=== PATIENT | male | born 1980 ===

== ENCOUNTER 2020-01-25 17:01 | Emergency (ER) | payer OTHER ==
[~2020-01-25] VITALS: Ht 172 cm; Wt 65.0 kg
[2020-01-25] MEDS ORDERED: NS IV 1000 ML 1,000 ML IV SCH (17:19)
[2020-01-25] MEDS ORDERED: LABETALOL HCL 20 MG/4 ML VIAL ONE (17:22)
[2020-01-25] MEDS ORDERED: meTOprolol 5 MG/5 ML (LOPRESSOR) VIAL IV ONE (17:30)
[2020-01-25 17:31] LABS: BASOPHILS % (AUTO) 0 % (0-10); EOSINOPHILS # (AUTO) 0.6 10^3/uL (0.0-0.3); EOSINOPHILS % (AUTO) 5 % (0-10); HEMATOCRIT 44 % (40-54); HEMOGLOBIN 15.3 G/DL (13.3-17.7); LYMPHOCYTES # (AUTO) 3.3 X 10^3 (1.0-4.0); LYMPHOCYTES % (AUTO) 28 % (12-44); MEAN CORPUSCULAR HEMOGLOBIN 26 PG (25-34); MEAN CORPUSCULAR HGB CONC 35 G/DL (32-36); MEAN CORPUSCULAR VOLUME 76 FL (80-99); MONOCYTES # (AUTO) 1.2 X 10^3 (0.0-1.0); MONOCYTES % (AUTO) 10 % (0-12); NEUTROPHILS # (AUTO) 6.8 X 10^3 (1.8-7.8); NEUTROPHILS % (AUTO) 57 % (42-75); PLATELET COUNT 313 10^3/uL (130-400); RED CELL DISTRIBUTION WIDTH 14.2 % (10.0-14.5)
[2020-01-25 17:44] LABS: ALBUMIN 4.6 GM/DL (3.2-4.5); INR 0.9 (0.8-1.4); PROTHROMBIN TIME PATIENT 12.7 SEC (12.2-14.7)
[2020-01-25 17:45] LABS: CHLORIDE 102 MMOL/L (98-107); POTASSIUM 3.3 MMOL/L (3.6-5.0); SODIUM 139 MMOL/L (135-145)
[2020-01-25] MEDS ORDERED: ASPIRIN 81 MG CHEW (CHILDREN'S ASA) PO ONE (17:45)
[2020-01-25 17:46] LABS: CALCIUM 9.7 MG/DL (8.5-10.1)
[2020-01-25 17:47] LABS: GLUCOSE 117 MG/DL (70-105); TOTAL PROTEIN 7.9 GM/DL (6.4-8.2)
[2020-01-25 17:48] LABS: CARBON DIOXIDE 21 MMOL/L (21-32)
[2020-01-25 17:49] LABS: BILIRUBIN,TOTAL 0.3 MG/DL (0.1-1.0)
--- NOTE | 2020-01-25 17:49 | Diagnostic Imaging Report ---
INDICATION: Palpitations. EXAMINATION: Upright chest. FINDINGS: Normal heart size and vascularity. The lungs are clear. There is no effusion or pneumothorax. There is no bony abnormality. IMPRESSION: Normal chest. Dictated by: Dictated on workstation # [id number]
--- NOTE | 2020-01-25 17:49 | NUR ---
THE PT IS RESTING MUCH BETTER WITHOUT COMPLAINTS.
[2020-01-25 17:51] LABS: ALKALINE PHOSPHATASE 107 U/L (40-136); CREATININE SERUM 0.88 MG/DL (0.60-1.30); GFR ESTIMATED > 60
[2020-01-25 17:52] LABS: BUN/CREATININE RATIO 9
[2020-01-25 17:54] LABS: ALANINE AMINOTRANSFERASE 32 U/L (0-55); MAGNESIUM 1.9 MG/DL (1.6-2.4)
[2020-01-25 18:00] VITALS: BP 142/99
--- NOTE | 2020-01-25 18:02 | ED Cardiac General ---
History of Present Illness General Chief Complaint: Cardiac/General Problems Stated Complaint: ELEV HR History of Present Illness Date Seen by Provider: Jan 25, 2020 Time Seen by Provider: 17:00 Initial Comments 40-year-old male presents for palpitations that started one hour ago, while watching TV. He is originally from [facility] reports that in 2019 that si milar symptoms and required evaluation in the emergency department February 2019 in [place], [place] and May 2019 and [facility]. Neither work up identified a cause (EKG, labs, he did not have Echo or Heart Cath). He denies Rx or OTC medications, supplements or illicit drug use. Denies anxiety or stress. 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 His home is in [place], [place]. Denies chest pain, n/v, headache, diaphoresis or other complaints. He drinks 3 cups of espresso, daily. He was in [place], [place] 2 days ago, no known COVID-19 risks. He is hypoventilating, on presentation. Timing/Duration: 1 hour Severity: mild NTG SL CONDENSER TUBE TENDER: No ASA po CONDENSER TUBE TENDER: No Associated Systoms: Denies Symptoms; No Chest Pain, No Cough, No Fever/Chills, No Loss of Appetite, No Malaise, No Nausea/Vomiting, No Shortness of Air, No Syncope, No Weakness Allergies and Home Medications Allergies Coded Allergies: No Known Drug Allergies (Unverified , 01/25/20) Home Medications Metoprolol Succinate 25 Mg Tab.er.24h, 25 MG PO DAILY Prescribed by: GUSTABO WINKLER on 01/25/20 2237 Patient Home Medication List Home Medication List Reviewed: Yes Review of Systems Review of Systems Constitutional: no symptoms reported, see HPI Respiratory: No Symptoms Reported, See HPI, Cough Cardiovascular: See HPI, Palpitations All Other Systems Reviewed Negative Unless Noted: Yes Past Fajudyo-Rahrbr-Mubnpw Hx Past Med/Social Hx: Reviewed Nursing Past Med/Soc Hx Patient Social History Recent Foreign Travel: No Contact w/Someone Who Travel: No Physical Exam Vital Signs Vital Signs - First Documented 01/25/20 17:53 Temp 36.8 Pulse 120 Resp 28 B/P (MAP) 170/100 (123) Pulse Ox 99 Capillary Refill : Height, Weight, BMI Height: '" Weight: lbs. oz. kg; BMI Method: General Appearance: Anxious, Mild Distress HEENT: PERRL/EOMI, TMs Normal, Normal ENT Inspection, Pharynx Normal Neck: Full Range of Motion, Normal Inspection, Non Tender, Supple Respiratory: Chest Non Tender, Lungs Clear, Normal Breath Sounds Cardiovascular: No Edema, No JVD, No Murmur, Normal Peripheral Pulses, Tachycardia Gastrointestinal: Normal Bowel Sounds, Non Tender, Soft Extremity: Normal Capillary Refill, Normal Inspection, Normal Range of Motion, Non Tender, No Calf Tenderness, No Pedal Edema Neurologic/Psychiatric: Alert, Oriented x3, No Motor/Sensory Deficits, Normal Mood/Affect Skin: Normal Color, Warm/Dry; No Diaphoresis Lymphatic: No Adenopathy Progress/Results/Core Measures Results/Orders Lab Results Laboratory Tests Test 01/25/20 17:21 01/25/20 18:00 Range/Units White Blood Count 12.0 H 4.3-11.0 10^3/uL Red Blood Count 5.83 4.35-5.85 10^6/uL Hemoglobin 15.3 13.3-17.7 G/DL Hematocrit 44 40-54 % Mean Corpuscular Volume 76 L 80-99 FL Mean Corpuscular Hemoglobin 26 25-34 PG Mean Corpuscular Hemoglobin Concent 35 32-36 G/DL Red Cell Distribution Width 14.2 10.0-14.5 % Platelet Count 313 130-400 10^3/uL Mean Platelet Volume 11.0 H 7.4-10.4 FL Neutrophils (%) (Auto) 57 42-75 % Lymphocytes (%) (Auto) 28 12-44 % Monocytes (%) (Auto) 10 0-12 % Eosinophils (%) (Auto) 5 0-10 % Basophils (%) (Auto) 0 0-10 % Neutrophils # (Auto) 6.8 1.8-7.8 X 10^3 Lymphocytes # (Auto) 3.3 1.0-4.0 X 10^3 Monocytes # (Auto) 1.2 H 0.0-1.0 X 10^3 Eosinophils # (Auto) 0.6 H 0.0-0.3 10^3/uL Basophils # (Auto) 0.0 0.0-0.1 10^3/uL Prothrombin Time 12.7 12.2-14.7 SEC INR Comment 0.9 0.8-1.4 Activated Partial Thromboplast Time 23 L 24-35 SEC Sodium Level 139 135-145 MMOL/L Potassium Level 3.3 L 3.6-5.0 MMOL/L Chloride Level 102 98-107 MMOL/L Carbon Dioxide Level 21 21-32 MMOL/L Anion Gap 16 H 5-14 MMOL/L Blood Urea Nitrogen 8 7-18 MG/DL Creatinine 0.88 0.60-1.30 MG/DL Estimat Glomerular Filtration Rate > 60 BUN/Creatinine Ratio 9 Glucose Level 117 H 70-105 MG/DL Calcium Level 9.7 8.5-10.1 MG/DL Corrected Calcium 8.5-10.1 MG/DL Magnesium Level 1.9 1.6-2.4 MG/DL Total Bilirubin 0.3 0.1-1.0 MG/DL Aspartate Amino Transf (AST/SGOT) 22 5-34 U/L Alanine Aminotransferase (ALT/SGPT) 32 0-55 U/L Alkaline Phosphatase 107 40-136 U/L Myoglobin 13.5 10.0-92.0 NG/ML Troponin I < 0.028 <0.028 NG/ML Total Protein 7.9 6.4-8.2 GM/DL Albumin 4.6 H 3.2-4.5 GM/DL Urine Color YELLOW Urine Clarity CLEAR Urine pH 6.5 5-9 Urine Specific Froid 1.010 L 1.016-1.022 Urine Protein NEGATIVE NEGATIVE Urine Glucose (UA) NEGATIVE NEGATIVE Urine Ketones NEGATIVE NEGATIVE Urine Nitrite NEGATIVE NEGATIVE Urine Bilirubin NEGATIVE NEGATIVE Urine Urobilinogen 0.2 < = 1.0 MG/DL Urine Leukocyte Esterase NEGATIVE NEGATIVE Urine RBC (Auto) TRACE-I NEGATIVE Urine RBC NONE /HPF Urine WBC RARE /HPF Urine Crystals NONE /LPF Urine Bacteria NEGATIVE /HPF Urine Casts NONE /LPF Urine Mucus NEGATIVE /LPF Urine Culture Indicated NO Urine Opiates Screen NEGATIVE NEGATIVE Urine Oxycodone Screen NEGATIVE NEGATIVE Urine Methadone Screen NEGATIVE NEGATIVE Urine Propoxyphene Screen NEGATIVE NEGATIVE Urine Barbiturates Screen NEGATIVE NEGATIVE Ur Tricyclic Antidepressants Screen NEGATIVE NEGATIVE Urine Phencyclidine Screen NEGATIVE NEGATIVE Urine Amphetamines Screen NEGATIVE NEGATIVE Urine Methamphetamines Screen NEGATIVE NEGATIVE Urine Benzodiazepines Screen NEGATIVE NEGATIVE Urine Cocaine Screen NEGATIVE NEGATIVE Urine Cannabinoids Screen NEGATIVE NEGATIVE My Orders Orders - CATHI,GUSTABO CLASSROOM AIDE Ekg Tracing (01/25/20 17:03) Cbc With Automated Diff (01/25/20 17:09) Magnesium (01/25/20 17:09) Chest 1 View, Ap/Pa Only (01/25/20 17:09) Comprehensive Metabolic Panel (01/25/20 17:09) Myoglobin Serum (01/25/20 17:09) Protime With Inr (01/25/20 17:09) Partial Thromboplastin Time (01/25/20 17:09) Monitor-Rhythm Ecg Trace Only (01/25/20 17:09) Ed Iv/Invasive Line Start (01/25/20 17:09) Troponin I (01/25/20 17:09) Ed Iv/Invasive Line Start (01/25/20 17:19) Ns Iv 1000 Ml (Sodium Chloride 0.9%) (01/25/20 17:19) Drug Screen Stat (Urine) (01/25/20 17:19) Ua Culture If Indicated (01/25/20 17:19) Metoprolol Tartrate Injection (Lopressor (01/25/20 17:30) Labetalol Injection (Normodyne Injection (01/25/20 17:22) Aspirin Chewable Tablet (Baby Aspirin Ch (01/25/20 17:45) Potassium Chloride (Tablet) (Klor Con Ta (01/25/20 18:28) Metoprolol Succinate (Xl) Tab (Toprol Xl (01/25/20 18:30) Medications Given in ED Current Medications Medications Dose Ordered Sig/Alexandro Route Start Time Stop Time Status Last Admin Dose Admin Aspirin 324 mg ONCE ONCE PO 01/25/20 17:45 01/25/20 17:46 DC 01/25/20 17:47 324 MG Labetalol HCl 20 mg STK-MED ONCE .ROUTE 01/25/20 17:22 01/25/20 17:24 DC 01/25/20 17:46 5 MG Vital Signs/I&O 01/25/20 01/25/20 01/25/20 17:53 18:00 18:44 Temp 36.8 37.7 Pulse 120 99 97 Resp 28 16 16 B/P (MAP) 170/100 (123) 142/99 (113) 124/96 Pulse Ox 99 99 99 Progress Progress Note : Time: 17:00 Progress Note Patient seen and evaluated, initial heart rate 120-130, B/P 200/110, sinus rhythm. Patient hypoventilating had him take slow, deep breaths. HR improved to 100-115. Will obtain labs, EKG, Chest X-ray, and Aspirin 324 mg PO. 1712 HR to 170, new EKG, continued Sinus Rhythm. Dr. Beyer present, valsalva maneuver. HR down to 130-140. Metoprolol 5 mg IV, to repeat n 5 min, if continued Tachy. B/P 170/90. 1725 after Metoprolol HR 90s, patient reports improvement in palpitations. B/P 150/[address] Conway, with improvement after Metoprolol, ok to D/C to home on Toprol 25 mg. To see Cardiology this week. 1830 patient has remained stable with heart rate 80-90, no palpitations or anxiety. Discharge instructions and return precautions reviewed. Initial ECG Impression Date: Jan 25, 2020 Initial ECG Impression Time: 17:08 Initial ECG Rate: 142 Initial ECG Rhythm: S.Tach Initial ECG Intervals: Normal Initial ECG Intervals ND 117, QRSD 97, QTC 296, QTc 455. Republic P 85, QRS 64, T -33. Initial ECG Impression: Normal Initial ECG Comparisson: No Previous ECG Available EKG : EKG Time: 17:15 Rate: 170 Rhythm: S.Tach Intervals: Normal Intervals ND 102, QRSD 83, QT 356, QTC 549. Republic P 99; QRS 55, T 61 ECG Comparisson: Changed ECG Impression: Normal Diagnostic Imaging Diagonstic Imaging: Xray Plain Films/CT/US/NM/MRI: chest Comments NAME: [facility] REC#: [id number] PT STATUS: REG ER : 1980 PHYSICIAN: GUSTABO WINKLER CLASSROOM AIDE ADMIT DATE: 01/25/20/ER Signed Date of Exam:01/25/20 CHEST 1 VIEW, AP/PA ONLY INDICATION: Palpitations. EXAMINATION: Upright chest. FINDINGS: Normal heart size and vascularity. The lungs are clear. There is no effusion or pneumothorax. There is no bony abnormality. IMPRESSION: Normal chest. Dictated by: Dictated on workstation # [id number] Dict: 01/25/20 1746 Trans: 01/25/20 175 [facility] [id number] Interpreted by: STEVEN GREENE MD Electronically signed by: STEVEN GREENE MD 01/25/20 4775 Reviewed: Reviewed by Me Departure Impression Primary Impression: Palpitations Additional Impression: Sinus tachycardia Disposition: 01 HOME, SELF-CARE Condition: Improved Departure-Patient Inst. Decision time for Depature: 18:30 Referrals: JESENIA CONWAY MD NO,LOCAL PHYSICIAN (PCP) Primary Care Physician Patient Instructions: Tachycardia (DC), Palpitations (DC) Add. Discharge Instructions: Take Toprol as prescribed. Increase water intake, 16 oz every 2 hours, while awake. Call for Appt with Dr. Conway for Sun or . Return to the Emergency Dept for palpitations, elevated heart rate, chest pain, shortness of breath or new urgent conditions. All discharge instructions reviewed with patient and/or family. Voiced understanding. Scripts Metoprolol Succinate (Toprol Xl) 25 Mg Tab.er.24h 25 MG PO DAILY, #30 TAB 1 Refill Prov: GUSTABO WINKLER 01/25/20 Copy Copies To 1: JESENAI CONWAY MD, AMY ARNP Jan 25, 2020 18:02
[2020-01-25 18:23] LABS: BILIRUBIN,URINE NEGATIVE (NEGATIVE); CLARITY,URINE CLEAR; COLOR,URINE YELLOW; GLUCOSE, URINE (UA) NEGATIVE (NEGATIVE); KETONES,URINE NEGATIVE (NEGATIVE); LEUKOCYTE ESTERASE ,URINE NEGATIVE (NEGATIVE); NITRITE,URINE NEGATIVE (NEGATIVE); PH,URINE 6.5 (5-9); PROTEIN,URINE NEGATIVE (NEGATIVE)
[2020-01-25 18:24] LABS: AMPHETAMINE SCREEN, URINE NEGATIVE (NEGATIVE); BARBITURATE SCREEN URINE NEGATIVE (NEGATIVE); BENZODIAZEPINES SCREEN URINE NEGATIVE (NEGATIVE); CANNABINOID SCREEN, URINE NEGATIVE (NEGATIVE); COCAINE SCREEN URINE NEGATIVE (NEGATIVE); METHADONE STAT NEGATIVE (NEGATIVE); METHAMPHETAMINE SCREEN URINE S NEGATIVE (NEGATIVE); OPIATE SCREEN URINE NEGATIVE (NEGATIVE); OXYCODONE STAT NEGATIVE (NEGATIVE); PROPOXYPHENE STAT NEGATIVE (NEGATIVE); TRICYCLIC ANTIDEPRESSANTS SCRE NEGATIVE (NEGATIVE)
[2020-01-25] MEDS ORDERED: KCL 10 MEQ TAB (MICRO K) PO STA (18:28)
[2020-01-25 18:30] LABS: BACTERIA,URINE NEGATIVE /HPF; WBC,URINE RARE /HPF
[2020-01-25] MEDS ORDERED: meTOproloL SUCCINATE 50 MG (TOPROL XL) TAB PO SCH (18:30)
[2020-01-25] MEDS ORDERED: METO-351 PO (18:38)
[2020-01-25 18:44] VITALS: BP 124/96
--- OUTSIDE RECORDS SUMMARY | 2020-01-25 18:48 | XMS REPORT | Continuity of Care Document ---
Author Organization Unknown Address Unknown Phone Unavailable Allergies There is no data. Medications There is no data. Problems There is no data. Procedures There is no data. Results There is no data. Encounters ACCT No. Visit Date/Time Discharge Status Pt. Type Provider Facility Loc./Unit Complaint [id number] 11/07/2019 09:10:00 11/07/2019 23:59: 59 CLS Outpatient [facility]
== END 2020-01-25 19:03 | disposition home or self-care (01) ==
LOC: ER 17:02
DX: R00.0 Tachycardia, unspecified (principal)
CPT/HCPCS: 36415; 71045; 80053; 80306; 81000; 83735; 83874; 84484; 85025; 85610; 85730; 93041

== ENCOUNTER → 2020-02-23 | Outpatient (CLI) | payer OTHER ==
[~2020-02-23] MED LIST: METO-351 PO
[2020-02-23 11:10] VITALS: BP 128/71
--- NOTE | 2020-02-23 11:10 | Cardiology Stress Test Report ---
Stress Test Report Date of Procedure/Referring: Date of Procedure: Feb 23, 2020 PCP Jesenia Conway MD Admitting Physician No,Local Physician Indications: Palpitation Baseline Heart Rate: 83 Baseline Blood Pressure: Blood Pressure Systolic: 128 Blood Pressure Diastolic: 71 Baseline EKG: Baseline EKG: normal sinus rhythm Summary/Conclusion: Summary: In summary, the patient started exercising with a baseline heart rate, blood pressure and EKG mentioned above Patient was able to exercise for a total of 7 minutes on Werner protocol, METs 8.5 Maximum heart rate 156 Maximum blood pressure 196/102 Stress EKG, Minimal nondiagnostic changes Recovery EKG , Return to baseline Conclusion: 1. Good exercise tolerance for a total of 7 minutes on Werner protocol, 8.5 METs, achieving 87 percent of maximum expected heart rate 2. Minimal nondiagnostic EKG changes with exercise returned to baseline during recovery 3. No arrhythmia was noted JESENIA CONWAY MD Feb 23, 2020 11:10 am
== END ==
LOC: CARD 09:03
PROVIDERS: ATTEND Internal Medicine Cardiovascular Disease
DX: R00.2 Palpitations (principal); R00.0 Tachycardia, unspecified
CPT/HCPCS: 93017; 93306